=== PATIENT | male | born 1940 | race Caucasian/White ===

== ENCOUNTER 2022-02-23 11:13 | Emergency (ER) | payer OTHER ==
[2022-02-23] MEDS ORDERED: Acetaminophen 500 MG TAB ONE (11:51)
[2022-02-23] MEDS ORDERED: Iopamidol-370 76% 500 ML 1 ML ONE (13:16)
[2022-02-23 14:47] LABS: ALT (SGPT) 32 U/L (8-55); AST (SGOT) 39 U/L (5-34); Albumin 3.3 g/dL (3.4-4.8); Alkaline Phosphatase 200 U/L (40-110); Anion Gap 13 mmol/L (10-20); BUN (Urea Nitrogen) 19 mg/dL (8.4-25.7); Bilirubin, Total 1.5 mg/dL (0.2-1.2); Calc. Creatinine Clearance 0 mL/min (70-130); Calcium 8.6 mg/dL (7.8-10.44); Carbon Dioxide 23 mmol/L (23-31); Chloride 104 mmol/L (98-107); Estimated GFR 62; Globulin 2.4 g/dL (2.4-3.5); Glucose 118 mg/dL (83-110); Potassium 5.3 mmol/L (3.5-5.1); Protein, Total 5.7 g/dL (5.8-8.1); Sodium 135 mmol/L (136-145)
[2022-02-23] MEDS ORDERED: Cyclobenzaprine 10 MG TAB ONE (15:41)
[2022-02-23] MEDS ORDERED: Lidocaine 5% Patch TD SCH (16:15)
[2022-02-23] MEDS ORDERED: Lidocaine 4% Cream 5 GM TUBE w/ Tegaderm ONE (16:53)
== END 2022-02-23 17:16 | disposition home or self-care (01) ==
LOC: ERS 11:13
DX: S22.088A Other fracture of T11-T12 vertebra, initial encounter for closed fracture (principal); S22.31XA Fracture of one rib, right side, initial encounter for closed fracture; I10 Essential (primary) hypertension; Z87.891 Personal history of nicotine dependence; W18.30XA Fall on same level, unspecified, initial encounter
CPT/HCPCS: 36415; 70450; 70486; 71045; 71260; 72125; 72131; 72170; 74177; 80053; 93005; Q9967

== ENCOUNTER 2022-05-14 11:26 | Outpatient (CLI) | payer OTHER | END 2022-05-14 11:27 | disposition home or self-care (01) | LOC: RAD 11:26 | PROVIDERS: ATTEND Transplant Surgery | DX: S22.089A Unspecified fracture of T11-T12 vertebra, initial encounter for closed fracture (principal); M48.8X4 Other specified spondylopathies, thoracic region | CPT/HCPCS: 72072; 72100 ==